=== PATIENT | female | born 1985 | race Caucasian/White ===

== ENCOUNTER 2016-04-18 19:15 | Emergency (ER) | payer OTHER ==
[~2016-04-18] VITALS: Ht 160 cm; Wt 90.9 kg
[~2016-04-18 19:15] MED LIST: CIPR-198 PO; IBUP200T48 PO
[2016-04-18 19:19] VITALS: BP 125/89; PULSE 119; RESP 18; O2SAT 97
--- NOTE | 2016-04-18 20:24 | ED.REPORT ---
HPI-Abd Pain F Under 40 Date of Service Apr 18, 2016 ED Provider: Otf Alamo DO A 30 year old female with a history of UTI, anxiety, pyelonephritis, and alcohol abuse presents to the ED complaining of nausea and vomiting accompanied by abdominal pain. The pt has been vomiting for two weeks, but this worsened in the last two days. She quit drinking one week ago, though she drank "a fifth a day" before this point. She tried to drink today but vomited immediately after. The pt denies . Nursing Notes Stated Complaint: NAUSEA,VOMITTING Chief Complaint: Female Abdominal Pain Nursing Notes Reviewed: Yes Allergies: Coded Allergies: amoxicillin (Verified Allergy, Unknown, 04/18/16) sumatriptan (Verified Allergy, Unknown, Hypercardiovascular state, 04/18/16 ) sumatriptan succinate (Verified Allergy, Unknown, Hypercardiovascular state, 04/18/16) Uncoded Allergies: BEES (Allergy, Unknown, 12/28/13) Scheduled Ciprofloxacin (Ciprofloxacin) 500 Mg Tablet 500 MG PO BID IBUPROFEN-Expunged Drug, Do Not Renew! (IBUPROFEN-Expunged Drug, Do Not Renew!) 200 Mg Tablet 200-800 MG PO PRN General Time Seen by MD: 20:24 Chief Complaint Vomiting moderate Hx Obtained From: Patient Arrived By: Walk-in Sudden in Onset?: No Onset Occurred: More than a week ago... Symptom Duration: Since onset Recent Healthcare: No recent doctor visit, No recent hospitalization Similar Sx Previous: No Past Medical History Past Medical History Notes: reviewed Past Medical History UTI Pyelonephritis Anxiety Past Surgical History hysterectomy Smoking History Current Every Day Smoker Social History drank a fifth per day until 04/2016 Drug Use: THC Other Social History: Good social support Ambulatory Status Independent Review of Systems Constitutional: Denies: Chills, Fever Respiratory: Denies: Non-productive cough, Shortness of breath Cardiovascular: Denies: Chest pain GI: Reports: Abdominal pain, Nausea, Vomiting Female: Denies: Complete sys rev & neg: except as marked. Physical Exam Initial Vital Signs Vital Signs (First) Date Time Temp Pulse Resp B/P Pulse Ox O2 Delivery O2 Flow Rate FiO2 04/18/16 19:19 36.6 119 18 125/89 97 Room Air Initial VS: Reviewed General/Constitutional: Awake, Alert Respiratory / Chest: Atraumatic, Breath sounds NL, Breath sounds = bilat, No respiratory distress Cardiovascular: Regular rhythm, Heart sounds NL Heart Rate / Rhythm: Positive: Tachycardia Abdomen: Atraumatic, Soft mild RUQ tenderness Back: Atraumatic, Full range of motion Head / Eyes: Atraumatic, Normocephalic, PERRL, EOMI questionable scleral jaundice ENT: Atraumatic, Airway patent, Mucous membranes moist Skin: Atraumatic, No rash, Warm, Dry Neurologic: Oriented X3, Speech NL, No motor deficits, No sensory deficits Neck: Atraumatic, Supple, Full range of motion Upper Extremity / MS: Atraumatic, Full range of motion Lower Extremity / Pelvis / MS: Atraumatic, Full range of motion Psychiatric: Affect NL, Mood NL Interpretation & Diagnostics Lab Results Interpretation Result Diagram: 04/18/16203904/18/162039 Test 04/18/16 20:30 04/18/16 20:40 04/18/16 21:21 04/18/16 23:20 Urine Color [place] (YELLOW) Urine Appearance Clear (CLEAR,HAZY) Urine pH (5.0-8.0) Urine Specific [place] 1.032 (1.003-1.035) Urine Protein mg/dL (NEG,TRACE) Urine Glucose (UA) mg/dL (NEGATIVE) Urine Ketones mg/dL (NEGATIVE) Urine Occult Blood (NEGATIVE) Urine Nitrite (NEGATIVE) Urine Bilirubin (NEGATIVE) Urine Urobilinogen mg/dL (NORMAL) Urine Leukocyte Esterase (NEGATIVE) Urine RBC 0-2/hpf (0-2) Urine WBC 0-5/hpf (0-5) Urine Epithelial Cells Many/hpf (NONE-MOD) Urine Crystals None seen (NONE SEEN) Urine Bacteria Many/hpf (NONE-FEW) Urine Hyaline Casts None/lpf (NONE) Urine Granular Casts None seen (NONE SEEN) Urine Waxy Casts None seen (NONE SEEN) Urine Red Blood Cell Casts None seen (NONE SEEN) Urine White Blood Cell Casts None seen (NONE SEEN) Urine Mucus Present (None Seen) Urine Trichomonas None seen (NONE SEEN) Urine Yeast None (NONE SEEN) Urinalysis Comment Color interference White Blood Count 5.7th/mm3 (3.8-10.1) Red Blood Count 3.55mil/mm3 (3.90-5.20) Hemoglobin 13.9g/dL (12.0-15.6) Hematocrit 38.3% (35.0-46.0) Mean Corpuscular Volume 107.9fL (81-100) Mean Corpuscular Hemoglobin 39.2pg (27.0-35.0) Mean Corpuscular Hemoglobin Concent 36.3% (32.0-37.0) Red Cell Distribution Width 17.5% (12.3-15.4) Platelet Count 121bil/L (150-400) Neutrophils (%) (Auto) 62.1% (40-74) Lymphocytes (%) (Auto) 29.6% (14-46) Monocytes (%) (Auto) 6.7% (4-12) Eosinophils (%) (Auto) 0.7% (0-5) Basophils (%) (Auto) 0.7% (0-3) Hold Purple Top Tube Received (Received) Prothrombin Time 12.9sec (8.1-12.5) Prothromb Time International Ratio 1.20ratio D-Dimer < 0.5mg/L (<0.50) Sodium Level 135mEq/L (134-144) Potassium Level 4.0mEq/L (3.5-5.2) Chloride Level 91mEq/L (97-108) Carbon Dioxide Level 28mmol/L (18-29) Blood Urea Nitrogen 9mg/dL (6-20) Creatinine 0.71mg/dL (0.57-1.00) Estimat Glomerular Filtration Rate 139mL/min (>59) Glucose Level 115mg/dL (60-99) Calcium Level 9.8mg/dL (8.5-10.1) Magnesium Level 2.0mg/dL (1.6-2.6) Total Bilirubin 4.8mg/dL (0.0-1.2) Aspartate Amino Transf (AST/SGOT) 131U/L (0-50) Alanine Aminotransferase (ALT/SGPT) 60U/L (0-32) Alkaline Phosphatase 201U/L (25-150) Total Protein 7.5g/dL (6.4-8.4) Albumin 3.8g/dL (3.4-5.0) Lipase 18U/L (13-60) Hold [place] Top Tube Received (Received) Hold [place] Top Tube Received (Received) Hold Urine Received (Received) Troponin T 0.010ug/L (0.0-0.011) CT Abd / Pelvis Interpretation CONCLUSION: Hepatomegaly with marked hepatic steatosis. No biliary duct dilation. No evidence of pancreatitis. Interpretation / Wet Read by: Interpret - Radiologist Pulse Oximetry Interpretation Pulse Oximetry Interpretation: 97% on room air Pulse Oximetry: Pulse Ox normal Re-Eval/Medical Decision Source of Hx: Old records Re-Evaluation/Progress #1: Time of Eval: 23:58 Patient Status: Condition improved Re-Evaluation/Progress Note: Pt rechecked, who is resting comfortably. She is informed of the need for CT scan. The pt agrees with this plan. Re-Evaluation/Progress #2: Time of Eval: 01:58 Patient Status: Condition improved Re-Evaluation/Progress Note: Pt rechecked, who is resting. She is informed of her CT results, diagnosis, and the plan for discharge. The pt understands and agrees with the plan. All questions are addressed at this time. Consultation : Referral / Consult Name: Liseth Casanova MD Call Returned at: 22:20 Chip Applying Machine Tender: Agrees with eval, Agrees with plan Note: Spoke with Dr. Casanova, GI, regarding pt's labs and history. Dr. Casanova agrees with the evaluation. Counseled Regarding: Diagnosis, Lab results, Need for follow-up, When/why to return to ED Discharge & Departure Primary Impression: Alcohol abuse Additional Impressions: Elevated bilirubin Fatty liver Abnormal liver enzymes Alcohol dependence with withdrawal with complication Disposition: Home Discharge Condition All VS Reviewed: Yes Condition: Stable Patient Instructions: Abuse of Alcohol (DC), Acute Abdominal Pain (ED), Liver Disease Diet (DC), Non-Alcoholic Fatty Liver Disease (ED) Additional Instructions: It is important that you do not ever drink alcohol again. You have alcoholic liver disease. The CAT scan also shows fatty liver disease. You need to exercise and eat healthy meals and stop drinking alcohol. I would like you to have your liver enzymes repeated this week. Set this up with your primary care physician. It seems that you have been suffering with some alcohol withdrawal as well. Take the Ativan taper exactly as prescribed. Have your mother be in control of this medicine and administer it to you. You may also take a Zofran every 8 hours as needed for nausea. Stopping drinking is the single most important thing you can do for your health. Your should be proud of yourself or being sober these past few days. Follow-up with [place] recovery services or the Alcoholics Anonymous. Return if any problems or any worsening symptoms. Do not combine any alcohol with the Ativan as the combination can be life- threatening. Do not drive tonight or while under the influence of Ativan. Call your doctor first thing Tuesday. Referrals: OTHER,PHYSICIAN (PCP) [facility] Scribe Attestation Portions of this note were transcribed by Chano Smith I, Dr. Alamo personally performed the history, physical exam and medical decision-making; I reviewed and confirmed the accuracy of the information in the transcribed note. Signed by: Faviola Serna, 04/18/16 and 02:12. copies to: [facility] Otf Alamo DO Apr 18, 2016 20:24 CHANO SMITH Apr 18, 2016 20:47
[2016-04-18 20:30] VITALS: BP 119/70; PULSE 106; RESP 18; O2SAT 100
[2016-04-18] MEDS ORDERED: Thiamine Inj 100 MG, Folic Acid Inj 1 MG, Magnesium Sulfate 50% Inj 2 GM, Multivitamins... IV ONE ×5 (20:40)
[2016-04-18] MEDS ORDERED: 0.9% Sodium Chloride 1,000 ML IV ONE (20:40)
[2016-04-18] MEDS: Ondansetron 2 mg/mL 2 mL Inj IVPUSH PRN ×2 (21:06→21:47)
[2016-04-18 21:31] LABS: BASOPHILS % (AUTO) 0.7 % (0-3); EOSINOPHILS % (AUTO) 0.7 % (0-5); MONOCYTES % (AUTO) 6.7 % (4-12); Mean Corpuscular Hemoglobin 39.2 pg (27.0-35.0); Mean Corpuscular Volume 107.9 fL (81-100); NEUTROPHILS % (AUTO) 62.1 % (40-74); Platelet Count 121 bil/L (150-400)
[2016-04-18 21:46] LABS: INR 1.2 ratio
[2016-04-18 22:00] VITALS: PULSE 105; RESP 16; O2SAT 99
[2016-04-19] VITALS: PULSE 103; RESP 16; O2SAT 96
[2016-04-19 00:42] LABS: APPEARANCE,URINE CLEAR (CLEAR,HAZY); COLOR,URINE ORANGE (YELLOW)
[2016-04-19] MEDS ORDERED: _Ondansetron ODT 4 mg Tablet PO PRN (01:35)
[2016-04-19] MEDS ORDERED: _LORazepam 2 MG Tablet PO SCH (01:35)
[2016-04-19 01:41] VITALS: BP 117/63; PULSE 74; RESP 16; O2SAT 98
--- NOTE | 2016-04-19 09:32 | DRSVH ---
PROCEDURE: CT ABDOMEN AND PELVIS WITH CONTRAST ([id number]) INDICATIONS: jaundice, ruq pain TECHNIQUE: After the administration of intravenous contrast, 5 mm thick sections acquired from the diaphragm to the symphysis. 5 mm coronal and sagittal reformats were acquired. For radiation dose reduction, the following was used: automated exposure control, adjustment of mA and/or kV according to patient siz e. COMPARISON: None. FINDINGS: Image quality: Excellent. ABDOMEN: Lung bases: Lung bases are clear. Heart size is normal. Solid organs: Liver is enlarged measuring 27.4 cm in the longitudinal axis. Diffuse fatty infiltratio n of the liver is noted. The spleen is normal in size and enhancement. Gallbladder is within normal limits. Biliary system is non dilated. Pancreas enhances normally. No adrenal nodules. Kidneys de monstrate normal size and enhancement, without hydronephrosis. Peritoneum and bowel: Bowel loops demonstrate normal wall thickness and caliber. No free fluid or a ir. The appendix is normal. Nodes and vessels: No retroperitoneal or mesenteric adenopathy by size criteria. Aorta and inferior vena cava are normal in size. Miscellaneous: No ventral hernias. PELVIS: Genitourinary: Bladder wall thickness is normal. Miscellaneous: No inguinal hernias or adenopathy. Bones: No suspicious bony lesions. No vertebral body compression fractures. IMPRESSION: 1. Hepatomegaly with severe hepatic steatosis. 2. No evidence of biliary obstruction. 3. No inflammatory changes. 4. No dilated loops of bowel. 5. No free fluid or air. Dictated by: Nohelia Trotter MD, PhD on 04/19/2016 at 9:31 Approved by: Nohelia Trotter MD, PhD on 04/19/2016 at 9:31
== END 2016-04-19 02:15 | disposition home or self-care (01) ==
LOC: SED 19:15
DX: K70.0 Alcoholic fatty liver (principal); F10.239 Alcohol dependence with withdrawal, unspecified; E80.7 Disorder of bilirubin metabolism, unspecified; R79.89 Other specified abnormal findings of blood chemistry; F17.200 Nicotine dependence, unspecified, uncomplicated; Z88.1 Allergy status to other antibiotic agents; Z88.8 Allergy status to other drugs, medicaments and biological substances
CPT/HCPCS: 36415; 74177; 80053; 81001; 81025; 83690; 83735; 84484; 85025; 85379; 85610; 93005; 96361; 96374; 96375; 96376; 99285; J2405; J3360; J3475; J7030; Q9967

== ENCOUNTER 2016-06-15 16:56 | Emergency (ER) | payer OTHER ==
[~2016-06-15] VITALS: Ht 160 cm; Wt 90.9 kg
[2016-06-15 17:18] VITALS: BP 121/84; PULSE 83; RESP 16; O2SAT 98
--- NOTE | 2016-06-15 19:20 | ED.REPORT ---
HPI-Dental/Mouth Prob Date of Service Jun 15, 2016 ED Provider: Jose Low PA-C Crys is a 30-year-old female who presents with a chief complaint of dental pain. She reports a 2 day history of pain in the right upper molar as well as a 1 day history of feeling a lump in that area. Denies fever, chills, sweats, difficulty breathing or swallowing, abdominal pain, vomiting, diarrhea. Nursing Notes Stated Complaint: DENTAL PAIN, POSS ABSCESS Chief Complaint: Dental Nursing Notes Reviewed: Yes Allergies: Coded Allergies: amoxicillin (Verified Allergy, Unknown, 06/15/16) sumatriptan (Verified Allergy, Unknown, Hypercardiovascular state, 06/15/16 ) sumatriptan succinate (Verified Allergy, Unknown, Hypercardiovascular state, 04/18/16) Uncoded Allergies: BEES (Allergy, Unknown, 12/28/13) Scheduled Clindamycin (Clindamycin) 300 Mg Capsule 300 MG PO QID Scheduled PRN oxyCODONE (oxyCODONE) 5 Mg Tablet 5 MG PO Q4H PRN PRN For Pain General Time Seen by MD: 18:54 Chief Complaint Tooth pain Past Medical History Past Medical History Notes: reviewed Past Medical History UTI Pyelonephritis Anxiety Past Surgical History hysterectomy Smoking History Current Every Day Smoker Social History drank a fifth per day until 04/2016 Drug Use: THC Other Social History: Good social support Ambulatory Status Independent Review of Systems Negative unless stated otherwise in history of present illness Physical Exam General: Well appearing, well developed, well nourished, no acute distress. Head: Atraumatic, normocephalic. Eyes: No scleral icterus or injection. No discharge. Vision grossly intact. ENT: Voice clear, hearing grossly intact. Mouth: Tender, 5 mm firm mass at the junction of the buccal and periodontal mucosa above the third molar. No discharge. Respiratory: No respiratory distress, no increased work of breathing. Speaks in complete sentences. Skin: Warm and dry. Neurological: Grossly nonfocal. Psychological: alert and oriented. Speech appropriate, linear and logical. Behavior appropriate. Initial Vital Signs Vital Signs (First) Date Time Temp Pulse Resp B/P Pulse Ox O2 Delivery O2 Flow Rate FiO2 06/15/16 17:18 36.8 83 16 121/84 98 Room Air Initial VS: Reviewed, Vital signs normal Re-Eval/Medical Decision Med Decision/Clinical Course 30-year-old female with chief complaint of tooth pain. She has complained of pain for the last 2 days and noticed a lump above her right upper molar yesterday. Denies systemic symptoms. Physical examination reveals a small firm mass at the buccal-periodontal junction above the third molar. No fluctuance is noted. I do not think there is an abscess or drainage at this time. I believe this is an early dental abscess versus sinus infection, peritonsillar abscess, Arvind's angina. Prescribed clindamycin for 5 days, advised [id number] analgesia prescribed a small amount of oxycodone to supplement with precautions. Advised primary care follow-up and gave emergency return precautions. Patient understands and is comfortable with the plan. Discussed this case with Dr. Brand. Discharge & Departure Primary Impression: Tooth pain Disposition: Home Discharge Condition All VS Reviewed: Yes Condition: Stable Patient Instructions: Dental Abscess (ED) Additional Instructions: Evaluation for tooth pain in the emergency department. History and physical suggest that you may have an infection developing in your tooth. At this point it is small enough that I do not think he should try to drain it. We will treat it with a course of antibiotics. Please take these 4 times a day for 5 days. The pain is best treated with 400 mg of ibuprofen (Advil, Motrin) every 6 hours , or 1000 mg of acetaminophen (Tylenol) every 6 hours. These drugs can be taken at the same time for more severe pain. I will provide a prescription for small amount of oxycodone to be taken for pain not controlled by these other medications. Patient do not drive or drink alcohol within 4 hours of taking this medication. Follow-up with your primary care provider in the next few days to be sure this progressing as expected. Return to emergency department for new or worsening symptoms including increasing facial pain, difficulty breathing or swallowing, fever, feeling ill. Referrals: Tremayne Jose EDSupervising Provider for APC: Mary Brand MD copies to: Tremayne Jose Seth PA-C Jun 15, 2016 19:20
[2016-06-15] MEDS ORDERED: OXYC5TAB72 PO (19:21)
[2016-06-15] MEDS ORDERED: CLIN-78 PO (19:21)
== END 2016-06-15 19:30 | disposition home or self-care (01) ==
LOC: SED 16:56
DX: K08.89 Other specified disorders of teeth and supporting structures (principal); F17.200 Nicotine dependence, unspecified, uncomplicated; Z88.1 Allergy status to other antibiotic agents; Z88.8 Allergy status to other drugs, medicaments and biological substances

== ENCOUNTER 2016-06-19 14:11 | Emergency (ER) | payer OTHER ==
[~2016-06-19] VITALS: Ht 160 cm; Wt 90.9 kg
[~2016-06-19 14:11] MED LIST changes: -CIPR-198 PO; +CLIN-78 PO; -IBUP200T48 PO; +OXYC5TAB72 PO
[2016-06-19 14:14] VITALS: BP 116/84; PULSE 82; RESP 16; O2SAT 99
--- NOTE | 2016-06-19 14:27 | ED.REPORT ---
HPI-Dental/Mouth Prob Date of Service Jun 19, 2016 ED Provider: Nolberto Caputo DO A 30 year old female presents to the ED complaining of dental pain that began 6 days ago. Patient was seen in the ED on 06/15 for similar symptoms and was discharged in good condition with Clindamycin. Patient states that she has been taking the antibiotics with little relief. The pain has been constant since onset. She denies any other medical complaints at this time. Nursing Notes Stated Complaint: swelling abscess in tooth Chief Complaint: Dental Nursing Notes Reviewed: Yes Allergies: Coded Allergies: amoxicillin (Verified Allergy, Unknown, 06/19/16) sumatriptan (Verified Allergy, Unknown, Hypercardiovascular state, 06/19/16 ) sumatriptan succinate (Verified Allergy, Unknown, Hypercardiovascular state, 06/19/16) Uncoded Allergies: BEES (Allergy, Unknown, 12/28/13) Scheduled Clindamycin (Clindamycin) 300 Mg Capsule 300 MG PO QID Scheduled PRN oxyCODONE (oxyCODONE) 5 Mg Tablet 5 MG PO Q4H PRN PRN For Pain General Time Seen by MD: 14:26 Chief Complaint Tooth pain Hx Obtained From: Patient Arrived By: Walk-in Onset Occurred: 6 days ago Symptom Duration: Since onset Location: : Tooth lower L lat incisor Quality: Painful Radiation: : Does not radiate Severity: Current: Mild Severity: Maximum: Mild Pertinent Negative: Pt denies other symptoms Recent Healthcare: No recent doctor visit, No recent hospitalization Past Medical History Past Medical History UTI Pyelonephritis Anxiety Past Surgical History Hysterectomy Smoking History Current Every Day Smoker Social History drank a fifth per day until 04/2016 Drug Use: THC Other Social History: Good social support, [place] resident Ambulatory Status Independent Review of Systems Constitutional: Denies: Chills, Fever Ears / Nose / Throat: Reports: Mouth pain (Mouth pain and swelling ), Toothache Respiratory: Denies: Shortness of breath GI: Denies: Abdominal pain, Nausea, Vomiting Complete sys rev & neg: except as marked. Physical Exam Initial Vital Signs Vital Signs (First) Date Time Temp Pulse Resp B/P Pulse Ox O2 Delivery O2 Flow Rate FiO2 06/19/16 14:14 36.4 82 16 116/84 99 Room Air Initial VS: Reviewed Head / Eyes: Atraumatic, Normocephalic, PERRL Extremities: Vascular intact, Neuro intact, No swelling, No tenderness Skin: Warm, Dry, No cyanosis Psychiatric: Mood/affect normal, Behavior normal, Normal thought content ENT: Atraumatic, Airway patent, Mucous membranes moist, Pharynx NL DENTAL: upper gumline tooth #6 beginning of periodontal abscess; no palpable abscess Gingival swelling and mild facial swelling Neck: Atraumatic, Supple, Full range of motion, Non-tender General/Constitutional: Awake, Alert, No acute distress Procedures Incision & Drainage Abscess I & D Abscess: I&D: No pus Bloody discharge Time: 14:55 Procedure Performed by: ED physician Consent / Setup / Site Prep: Consent from patient, Time-out performed, Hand hygiene observed, Stand sterile technique Local Anesthesia: Lidocaine w epi 1% Incised Abscess with Scalpel: #10 Post-Procedure / Complications: Packing placed, Drain placed, Culture obtained, Gram stain ordered, Dressing applied, No complications, Condition improved, Tolerated procedure well, Patient stable Re-Eval/Medical Decision Re-Evaluation/Progress : Time of Eval: 14:55 Patient Status: Condition improved Re-Evaluation/Progress Note: Patient is rechecked. Abscess is drained. Patient tolerates procedure well. She is informed of her diagnosis. All of the patient's questions are adressed. She understands and agrees with the treatment plan to discharge. Counseled Regarding: Diagnosis, Need for follow-up, When/why to return to ED Discharge & Departure Primary Impression: Dental abscess Disposition: Home Discharge Condition All VS Reviewed: Yes Condition: Improved Patient Instructions: Dental Abscess (ED) Additional Instructions: Thank you for trusting us with your care this morning. Your exam is reassuring at this time and I believe that your symptoms are likely due to a dental abscess. I recommend you attempt to schedule an earlier appointment with a dentist (see referral). Please return to the emergency department for any new or worsening conditions including any difficulty breathing, fevers, or [facility] [place] Attestation Portions of this note were transcribed by Tara Thomson. I, Dr. Jules Trotter personally performed the history, physical exam and medical decision-making; I reviewed and confirmed the accuracy of the information in the transcribed note. Signed by: Faviola Lombardo, 06/19/16 1500. copies to: [facility] Nolberto Saucedo DO Jun 19, 2016 14:27 TARA THOMSON Jun 19, 2016 14:35
[2016-06-19] MEDS ORDERED: Lidocaine 1%-Epi 1:100,000 20 mL Inj ONE (14:38)
[2016-06-19 15:18] VITALS: BP 116/84; PULSE 82; RESP 16; O2SAT 99
== END 2016-06-19 15:19 | disposition home or self-care (01) ==
LOC: SED 14:11
DX: K04.7 Periapical abscess without sinus (principal); F17.200 Nicotine dependence, unspecified, uncomplicated; F12.10 Cannabis abuse, uncomplicated; Z87.440 Personal history of urinary (tract) infections; Z88.0 Allergy status to penicillin; Z88.8 Allergy status to other drugs, medicaments and biological substances

== ENCOUNTER 2016-07-16 11:43 | Emergency (ER) | payer OTHER ==
[~2016-07-16] VITALS: Ht 160 cm; Wt 90.1 kg
[2016-07-16 11:53] VITALS: BP 124/91; PULSE 91; RESP 15; O2SAT 99
== END 2016-07-16 12:38 | disposition left against medical advice (07) ==
LOC: SED 11:43
DX: M54.9 Dorsalgia, unspecified (principal); X50.3XXA Overexertion from repetitive movements, initial encounter; Y93.89 Activity, other specified; Y92.009 Unspecified place in unspecified non-institutional (private) residence as the place of occurrence of the external cause; Y99.8 Other external cause status; Z53.29 Procedure and treatment not carried out because of patient's decision for other reasons